=== PATIENT | female | born 1960 | race Caucasian/White ===

== ENCOUNTER 2016-11-29 02:09 | Inpatient (IN) | payer MEDICARE ==
[~2016-11-29] VITALS: Ht 162.6 cm; Wt 62.2 kg
[2016-11-29 02:28] VITALS: BP 176/87; PULSE 64; RESP 18; TEMP 98.2; O2SAT 97
[2016-11-29] MEDS ORDERED: XANA1TAB2 PO (02:39)
[2016-11-29] MEDS ORDERED: HYDR2TAB PO (02:39)
[2016-11-29] MEDS ORDERED: OXYC1CAP PO (02:39)
[2016-11-29] MEDS ORDERED: SYNT25TA PO (02:39)
--- NOTE | 2016-11-29 02:39 | PD ---
HPI Chief Complaint: Calle act Time Seen by Provider: 02:17 Travel History International Travel<30 days: No Contact w/Intl Traveler<30days: No Traveled to known affect area: No History of Present Illness HPI 56-year-old white female presents to emergency department as a transfer from [facility] because she is outside there scope of care. The patient was placed under Calle act and sent to [facility]. The patient had told a friend of hers that she was feeling depressed and contemplating overdosing on her medications. Her friend contacted the police who Calle acted the patient. The patient has been under increasing stress and feeling increasingly depressed. Her mother last month. She was required to leave her mothers home according to the Will. The patient now is living with her daughter. She does not feel welcome in the home. She has no friends in the area. She does smoke cigarettes. She denies any alcohol or drugs. She does take chronic pain medications for chronic back pain. She also takes thyroid replacement. Patient denies any toxic ingestion. No homicidal ideation. No current medical complaints otherwise. PFSH Past Medical History Narrative Medical Chronic back pain, hypothyroidism, anxiety Tetanus Vaccination: < 5 Years Past Surgical History Narrative Surgical Back surgery 3 Social History Alcohol Use: Yes Tobacco Use: No Substance Use: No Allergies-Medications (Allergen,Severity, Reaction): Coded Allergies: lisinopril (Verified Allergy, Severe, 11/29/16) metronidazole (Verified Allergy, Severe, 11/29/16) Reported Meds & Prescriptions Reported Meds & Active Scripts Active Reported Hydromorphone (Hydromorphone HCl) 2 Mg Tab 2 Mg PO DIRECTED PRN Oxycodone (Oxycodone HCl) 5 Mg Cap 5 Mg PO DIRECTED PRN Synthroid (Levothyroxine Sodium) 25 Mcg Tab 25 Mcg PO DAILY Xanax (Alprazolam) 1 Mg Tab 1 Mg PO DIRECTED Review of Systems Except as stated in HPI: all other systems reviewed are Neg Musculoskeletal: Positive: Arthralgias, Pain (chronic back pain) Psychiatric: Positive: Depression, Suicidal Ideations, Mood Disorder, No: Anxiety, Disorder of Thought, Substance Abuse, Homicidal Ideation Physical Exam Narrative GENERAL: Well-nourished, well-developed patient. SKIN: Warm and dry. HEAD: Normocephalic and atraumatic. EYES: No scleral icterus. No injection or drainage. ENT: No nasal drainage noted. Mucous membranes pink. Airway patent. NECK: Supple, trachea midline. Moves head freely without obvious discomfort. CARDIOVASCULAR: Regular rate and rhythm without murmurs, gallops, or rubs. RESPIRATORY: Breath sounds equal bilaterally. No accessory muscle use. GASTROINTESTINAL: Abdomen soft, non-tender, nondistended. EXTREMITIES: No cyanosis or edema. BACK: Nontender without obvious deformity. No CVA tenderness. NEURO: Patient is alert and oriented. no sensorimotor deficits. Nonfocal. Normal speech. PSYCH: No delusions. No auditory or visual hallucinations. Data Data Last Documented VS Vital Signs Date Time Temp Pulse Resp B/P (MAP) Pulse Ox O2 Delivery O2 Flow Rate FiO2 11/29/16 02:28 98.2 64 18 176/87 (116) 97 Orders Orders Complete Blood Count With Diff (11/29/16 02:29) Comprehensive Metabolic Panel (11/29/16 02:29) Thyroid Stimulating Hormone (11/29/16 02:29) Urinalysis - C+S If Indicated (11/29/16 02:29) Psych Screen (11/29/16 02:29) Drug Screen, Random Urine (11/29/16 02:29) Alcohol (Ethanol) (11/29/16 02:29) Salicylates (Aspirin) (11/29/16 02:29) Tylenol (Acetaminophen) (11/29/16 02:29) Urine Culture (11/29/16 03:10) Nitrofurantoin Monohyd Macrocr (Macrobid (11/29/16 04:00) Labs Laboratory Tests Test 11/29/16 03:10 White Blood Count 7.7 TH/MM3 Red Blood Count 4.33 MIL/MM3 Hemoglobin 12.1 GM/DL Hematocrit 37.5 % Mean Corpuscular Volume 86.6 FL Mean Corpuscular Hemoglobin 27.8 PG Mean Corpuscular Hemoglobin Concent 32.1 % Red Cell Distribution Width 15.8 % Platelet Count 231 TH/MM3 Mean Platelet Volume 9.1 FL Neutrophils (%) (Auto) 59.4 % Lymphocytes (%) (Auto) 33.1 % Monocytes (%) (Auto) 5.5 % Eosinophils (%) (Auto) 0.8 % Basophils (%) (Auto) 1.2 % Neutrophils # (Auto) 4.6 TH/MM3 Lymphocytes # (Auto) 2.6 TH/MM3 Monocytes # (Auto) 0.4 TH/MM3 Eosinophils # (Auto) 0.1 TH/MM3 Basophils # (Auto) 0.1 TH/MM3 CBC Comment DIFF FINAL Differential Comment Urine Color YELLOW Urine Turbidity HAZY Urine pH 6.0 Urine Specific [place] 1.032 Urine Protein TRACE mg/dL Urine Glucose (UA) NEG mg/dL Urine Ketones NEG mg/dL Urine Occult Blood NEG Urine Nitrite NEG Urine Bilirubin NEG Urine Urobilinogen 2.0 MG/DL Urine Leukocyte Esterase LARGE Urine RBC 2 /hpf Urine WBC 37 /hpf Urine Squamous Epithelial Cells 9 /hpf Urine Renal Epithelial Cells <1 /hpf Urine Bacteria RARE /hpf Urine Mucus MANY /lpf Microscopic Urinalysis Comment CULTURE INDICATED Blood Urea Nitrogen 20 MG/DL Creatinine 0.84 MG/DL Random Glucose 84 MG/DL Total Protein 7.2 GM/DL Albumin 3.6 GM/DL Calcium Level 8.9 MG/DL Alkaline Phosphatase 99 U/L Aspartate Amino Transf (AST/SGOT) 18 U/L Alanine Aminotransferase (ALT/SGPT) 19 U/L Total Bilirubin 0.2 MG/DL Sodium Level 143 MEQ/L Potassium Level 3.6 MEQ/L Chloride Level 108 MEQ/L Carbon Dioxide Level 26.4 MEQ/L Anion Gap 9 MEQ/L Estimat Glomerular Filtration Rate 70 ML/MIN Thyroid Stimulating Hormone 3rd Gen 14.100 uIU/ML Salicylates Level 6.7 MG/DL Urine Opiates Screen NEG Acetaminophen Level 4.3 MCG/ML Urine Barbiturates Screen NEG Urine Amphetamines Screen NEG Urine Benzodiazepines Screen POS Urine Cocaine Screen NEG Urine Cannabinoids Screen NEG Ethyl Alcohol Level LESS THAN 3 MG/DL MDM Medical Decision Making Medical Screen Exam Complete: Yes Emergency Medical Condition: Yes Medical Record Reviewed: Yes Interpretation(s) Laboratory Tests Test 11/29/16 03:10 White Blood Count 7.7 TH/MM3 Red Blood Count 4.33 MIL/MM3 Hemoglobin 12.1 GM/DL Hematocrit 37.5 % Mean Corpuscular Volume 86.6 FL Mean Corpuscular Hemoglobin 27.8 PG Mean Corpuscular Hemoglobin Concent 32.1 % Red Cell Distribution Width 15.8 % Platelet Count 231 TH/MM3 Mean Platelet Volume 9.1 FL Neutrophils (%) (Auto) 59.4 % Lymphocytes (%) (Auto) 33.1 % Monocytes (%) (Auto) 5.5 % Eosinophils (%) (Auto) 0.8 % Basophils (%) (Auto) 1.2 % Neutrophils # (Auto) 4.6 TH/MM3 Lymphocytes # (Auto) 2.6 TH/MM3 Monocytes # (Auto) 0.4 TH/MM3 Eosinophils # (Auto) 0.1 TH/MM3 Basophils # (Auto) 0.1 TH/MM3 CBC Comment DIFF FINAL Differential Comment Urine Color YELLOW Urine Turbidity HAZY Urine pH 6.0 Urine Specific [place] 1.032 Urine Protein TRACE mg/dL Urine Glucose (UA) NEG mg/dL Urine Ketones NEG mg/dL Urine Occult Blood NEG Urine Nitrite NEG Urine Bilirubin NEG Urine Urobilinogen 2.0 MG/DL Urine Leukocyte Esterase LARGE Urine RBC 2 /hpf Urine WBC 37 /hpf Urine Squamous Epithelial Cells 9 /hpf Urine Renal Epithelial Cells <1 /hpf Urine Bacteria RARE /hpf Urine Mucus MANY /lpf Microscopic Urinalysis Comment CULTURE INDICATED Blood Urea Nitrogen 20 MG/DL Creatinine 0.84 MG/DL Random Glucose 84 MG/DL Total Protein 7.2 GM/DL Albumin 3.6 GM/DL Calcium Level 8.9 MG/DL Alkaline Phosphatase 99 U/L Aspartate Amino Transf (AST/SGOT) 18 U/L Alanine Aminotransferase (ALT/SGPT) 19 U/L Total Bilirubin 0.2 MG/DL Sodium Level 143 MEQ/L Potassium Level 3.6 MEQ/L Chloride Level 108 MEQ/L Carbon Dioxide Level 26.4 MEQ/L Anion Gap 9 MEQ/L Estimat Glomerular Filtration Rate 70 ML/MIN Thyroid Stimulating Hormone 3rd Gen 14.100 uIU/ML Salicylates Level 6.7 MG/DL Urine Opiates Screen NEG Acetaminophen Level 4.3 MCG/ML Urine Barbiturates Screen NEG Urine Amphetamines Screen NEG Urine Benzodiazepines Screen POS Urine Cocaine Screen NEG Urine Cannabinoids Screen NEG Ethyl Alcohol Level LESS THAN 3 MG/DL Differential Diagnosis MDM: High Differential diagnoses: Schizophrenia, schizoaffective disorder, bipolar, anxiety, depression, adjustment reaction, mood disorder NOS, ODD, depressive disorder NOS, dementia, dementia with agitation, psychosis NOS, substance induced mood disorder,infection,electrolyte abnormality, malingering. Narrative Course Mental health screening discussed with the patient. Psychiatric screen ordered. The patient has leukocytes and bacteria in her urine. Negative nitrates. She' ll be empirically treated for UTI. Patient given Macrobid, patient's TSH is elevated consistent with hypothyroidism Patient been medically cleared This is medical clearance for psychiatric admission, adjustment reaction with depressed mood, chronic back pain, UTI, hypothyroidism Diagnosis Primary Impression: Medical clearance for psychiatric admission Additional Impressions: Reaction, adjustment, with depressed mood, prolonged Chronic back pain Qualified Codes: M54.5 - Low back pain; G89.29 - Other chronic pain UTI (urinary tract infection) Qualified Codes: N30.00 - Acute cystitis without hematuria Hypothyroidism Qualified Codes: E03.9 - Hypothyroidism, unspecified Condition: Stable Chema Henning Nov 29, 2016 02:39
[2016-11-29 03:37] LABS: BACTERIA, URINE RARE /hpf; BLOOD, URINE NEG (NEG); GLUCOSE,URINE NEG (NEG); KETONE, URINE NEG (NEG); MUCUS URINE MANY /lpf (OCC); NITRITE,URINE NEG (NEG); RENAL EPITHELIAL CELLS <1 /hpf; SQUAMOUS EPITHELIAL CELL URINE 9 /hpf (0-5); URINE COLOR YELLOW (YELLW/STRAW)
[2016-11-29 03:38] LABS: COMMENT (UR) CULTURE INDICATED; CULTURE IF INDICATED CULTURE INDICATED
[2016-11-29 03:44] LABS: AUTOMATED NEUTROPHIL # 4.6 TH/MM3 (1.8-7.7); BASOPHIL # 0.1 TH/MM3 (0-0.2); BASOPHIL % 1.2 % (0.0-2.0); EOSINOPHIL # 0.1 TH/MM3 (0-0.4); EOSINOPHIL % 0.8 % (0.0-4.0); HEMATOCRIT 37.5 % (35.0-46.0); HEMO FLAGS DIFF FINAL; LYMPH % 33.1 % (9.0-44.0); LYMPHOCYTE # 2.6 TH/MM3 (1.0-4.8); MEAN CELL VOLUME 86.6 FL (80.0-100.0); MEAN CORPUSCULAR HEMOGLOBIN 27.8 PG (27.0-34.0); MEAN CORPUSCULAR HGB CONC 32.1 % (32.0-36.0); MONO % 5.5 % (0.0-8.0); NEUT % 59.4 % (16.0-70.0); PLATELET COUNT 231 TH/MM3 (150-450); RED BLOOD COUNT 4.33 MIL/MM3 (4.00-5.30); RED CELL DISTRIBUTION WIDTH 15.8 % (11.6-17.2); WHITE BLOOD COUNT 7.7 TH/MM3 (4.0-11.0)
[2016-11-29 03:55] LABS: ACETAMINOPHEN 4.3 MCG/ML (10.0-30.0); ALKALINE PHOSPHATASE 99 U/L (45-117); TOTAL BILIRUBIN ADULT 0.2 MG/DL (0.2-1.0)
[2016-11-29 03:57] LABS: ALCOHOL LESS THAN 3 MG/DL (0-5); ALT (GPT) 19 U/L (10-53); ANION GAP 9 MEQ/L (5-15); AST (GOT) 18 U/L (15-37); BICARBONATE 26.4 MEQ/L (21.0-32.0); BLOOD UREA NITROGEN 20 MG/DL (7-18); CHLORIDE 108 MEQ/L (98-107); GLOMERULAR FILTRATION RATE 70 ML/MIN (>89); POTASSIUM 3.6 MEQ/L (3.5-5.1); SODIUM (NA) 143 MEQ/L (136-145)
[2016-11-29] MEDS ORDERED: NITROFURANTOIN MONOHYD MACROCR 100 MG CAP PO ONE (04:00)
[2016-11-29] MEDS ORDERED: ALUMINUM/MAGNESIUM/SIMETH 30 ML CUP PO PRN (07:15)
[2016-11-29] MEDS ORDERED: MAGNESIUM HYDROXIDE SUSP 30 ML CUP PO PRN (07:15)
[2016-11-29] MEDS ORDERED: LORazepam 1 MG TAB PO PRN (07:15)
[2016-11-29] MEDS ORDERED: LORazepam 2 MG/ML VIAL IM PRN (07:15)
[2016-11-29] MEDS ORDERED: traZODone HCL 50 MG TAB PO PRN (07:15)
[2016-11-29] MEDS: NICOTINE 21 MG/24 HR PATCH T-DERMAL SCH (09:00)
[2016-11-29] MEDS: LEVOTHYROXINE SODIUM 25 MCG TAB PO SCH (09:14)
[2016-11-29 09:50] VITALS: BP 167/95; PULSE 66; RESP 18; TEMP 97.4; O2SAT 98
[2016-11-29 17:02] VITALS: BP 163/105; PULSE 62; RESP 18; TEMP 97.9; O2SAT 95
--- NOTE | 2016-11-29 18:43 | PD.CONS ---
HPI Service [facility] Hospitalists Consult Requested By Reason for Consult Medical management Primary Care Physician Sofía Sharma MD Diagnoses: History of Present Illness Patient was transferred to [facility] apparently because her pain was not controlled at [facility] (where she was being managed for mental illness) . History obtained from nurse and patient. 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 Patient reports she's undergone spinal surgeries and has residual left lower leg numbness and chronic back pain that is rather severe. She states that she has been tried on multiple medications including gabapentin, Lyrica, and tramadol with no satisfactory results. She states that she takes oxycodone 6 times a day and Dilaudid in between for breakthrough 2-4 times a day. She states that she was also recently being managed for her hypothyroidism by her primary care provider, she cannot remember the dosage and there is no dosage listed in our charts either. Patient denies having any change in her urinary habits including increased frequency dysuria or hematuria. Denies any fevers or chills, nausea vomiting. Patient says that she feels that she is wasting of bed at this facility and is asking me to "sign her out." Review of Systems Except as stated in HPI: all other systems reviewed are Neg Past Family Social History Allergies: Coded Allergies: lisinopril (Verified Allergy, Severe, 11/29/16) metronidazole (Verified Allergy, Severe, 11/29/16) Past Medical History Hypothyroidism, chronic low back pain, anxiety Past Surgical History Spinal surgery 3 Family History Hypertension Social History Alcohol use +, no tobacco or illicit drug use Physical Exam Vital Signs Vital Signs Date Time Temp Pulse Resp B/P (MAP) Pulse Ox O2 Delivery O2 Flow Rate FiO2 11/29/16 17:02 97.9 62 18 163/105 (124) 95 11/29/16 09:50 97.4 66 18 167/95 (119) 98 11/29/16 02:28 98.2 64 18 176/87 (116) 97 Physical Exam VS: Hypertensive, afebrile GENERAL: ambulating in the hallways, does not appear to be in any acute distress SKIN: Warm and dry. EYES: No scleral icterus. No injection or drainage. ENT: Mucous membranes pink and moist. CARDIOVASCULAR: Regular rate and rhythm. no murmurs RESPIRATORY: No accessory muscle use. Clear to auscultation. Breath sounds equal bilaterally. GASTROINTESTINAL: Abdomen soft, non-tender, nondistended. MUSCULOSKELETAL: Extremities without clubbing, cyanosis, or edema. No obvious deformities. grossly intact ROM with 5/5 strength in upper and lower extremities proximally. Moderate tenderness to palpation noted over lumbar spine with natural flinching. NEUROLOGICAL: Awake and alert. No obvious cranial nerve deficits. No facial droop nor slurred speech noted. No sensation to light touch on anterior conroy of left lower leg. Intact sensation otherwise on right leg and bilateral upper extremities. PSYCHIATRIC: Appropriate mood and affect; insight and judgment normal. Laboratory Laboratory Tests Test 11/29/16 03:10 White Blood Count 7.7 Red Blood Count 4.33 Hemoglobin 12.1 Hematocrit 37.5 Mean Corpuscular Volume 86.6 Mean Corpuscular Hemoglobin 27.8 Mean Corpuscular Hemoglobin Concent 32.1 Red Cell Distribution Width 15.8 Platelet Count 231 Mean Platelet Volume 9.1 Neutrophils (%) (Auto) 59.4 Lymphocytes (%) (Auto) 33.1 Monocytes (%) (Auto) 5.5 Eosinophils (%) (Auto) 0.8 Basophils (%) (Auto) 1.2 Neutrophils # (Auto) 4.6 Lymphocytes # (Auto) 2.6 Monocytes # (Auto) 0.4 Eosinophils # (Auto) 0.1 Basophils # (Auto) 0.1 CBC Comment DIFF FINAL Differential Comment Urine Color YELLOW Urine Turbidity HAZY Urine pH 6.0 Urine Specific [place] 1.032 Urine Protein TRACE Urine Glucose (UA) NEG Urine Ketones NEG Urine Occult Blood NEG Urine Nitrite NEG Urine Bilirubin NEG Urine Urobilinogen 2.0 Urine Leukocyte Esterase LARGE Urine RBC 2 Urine WBC 37 Urine Squamous Epithelial Cells 9 Urine Renal Epithelial Cells <1 Urine Bacteria RARE Urine Mucus MANY Microscopic Urinalysis Comment CULTURE INDICATED Blood Urea Nitrogen 20 Creatinine 0.84 Random Glucose 84 Total Protein 7.2 Albumin 3.6 Calcium Level 8.9 Alkaline Phosphatase 99 Aspartate Amino Transf (AST/SGOT) 18 Alanine Aminotransferase (ALT/SGPT) 19 Total Bilirubin 0.2 Sodium Level 143 Potassium Level 3.6 Chloride Level 108 Carbon Dioxide Level 26.4 Anion Gap 9 Estimat Glomerular Filtration Rate 70 Thyroid Stimulating Hormone 3rd Gen 14.100 Salicylates Level 6.7 Urine Opiates Screen NEG Acetaminophen Level 4.3 Urine Barbiturates Screen NEG Urine Amphetamines Screen NEG Urine Benzodiazepines Screen POS Urine Cocaine Screen NEG Urine Cannabinoids Screen NEG Ethyl Alcohol Level LESS THAN 3 Date/Time Source Procedure Growth Status 11/29/16 03:10 Urine Clean Catch Urine Culture Pending Received Result Diagram: 11/29/1630911/29/16309 Assessment and Plan Assessment and Plan 56-year-old white female. Elevated blood pressures - likely secondary to back pain, control pain, will order hydralazine prn elevated BP. 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 The most recent prescribed doses need to be verified by either nursing or pharmacy based on outside medical records which need to be obtained. hypothyroidism - TSH elevated. continue Synthroid HEATHER - possibly chronic, but will do a trial of NS and repeat BMP in AM. anxiety - managed per primary. There are no clinical signs of urinary tract infection, we'll not continue the Macrobid started in the ER, can still follow-up urine culture since it has already been started. Kapil Norris MD Nov 29, 2016 18:43
[2016-11-29] MEDS ORDERED: hydrALAZINE HCL 25 MG TAB PO PRN (19:00)
[2016-11-29] MEDS ORDERED: SODIUM CHLOR 0.9% 1000 ML INJ 1,000 ML IV ONE (19:00)
[2016-11-29] MEDS: REMOVE OLD NICOTINE PATCH T-DERMAL SCH (20:50)
[2016-11-30] MEDS: LEVOTHYROXINE SODIUM 25 MCG TAB PO SCH (05:12)
[2016-11-30 05:55] VITALS: BP 140/84; PULSE 65; RESP 18; TEMP 96.3; O2SAT 97
[2016-11-30 06:08] VITALS: BP 140/84; PULSE 65; RESP 18; TEMP 96.3; O2SAT 97
[2016-11-30] MEDS: NICOTINE 21 MG/24 HR PATCH T-DERMAL SCH (08:12)
[2016-11-30] MEDS: ACETAMINOPHEN 325 MG TAB PO PRN ×2 (10:07→20:09)
[2016-11-30] MEDS ORDERED: OXYC-395 PO (10:32)
[2016-11-30] MEDS ORDERED: HYDR4TAB PO (10:32)
[2016-11-30 11:05] LABS: ANION GAP 10 MEQ/L (5-15); BICARBONATE 27.2 MEQ/L (21.0-32.0); BLOOD UREA NITROGEN 15 MG/DL (7-18); CHLORIDE 104 MEQ/L (98-107); GLOMERULAR FILTRATION RATE 76 ML/MIN (>89); POTASSIUM 3.3 MEQ/L (3.5-5.1); SODIUM (NA) 141 MEQ/L (136-145)
[2016-11-30 11:08] LABS: HDL CHOLESTEROL 30.7 MG/DL (40.0-60.0); LDL CHOLESTEROL 64 MG/DL (0-99)
[2016-11-30] MEDS: HYDROmorphone HCL 2 MG TAB PO PRN ×2 (14:19→21:01)
[2016-11-30] MEDS: PARoxetine HCL 20 MG TAB PO SCH (14:45)
[2016-11-30 16:41] LABS: HEMOGLOBIN A1a 1.1 %; HEMOGLOBIN A1b 1.8 %; HEMOGLOBIN Ao 84.6 %; HEMOGLOBIN LA1C 2.2 %; HEMOGLOBIN P3 5.5 %
--- NOTE | 2016-11-30 17:16 | HHI.HP ---
Provisional Diagnosis Admission Date Nov 29, 2016 at 06:41 Lo[place] I. Adjustment disorder with depressed mood; bereavement Certification of Person's Competence To Provide Express and Informed Consent I have personally examined Nancy Lopez , a person being served at [facility] on, Nov 30, 2016 17:16. Express and informed consent means consent voluntarily given in writing, by a competent person, after sufficient explanation and disclosure of the subject matter involved to enable the person to make a knowing and willful decision without any element of force, fraud, deceit, duress, or other form of constraint or coercion. This person is 18 years of age or older, is not now known to be incompetent to consent to treatment with a guardian advocate, and does not have a health care surrogate or proxy currently making medical treatment decisions. I have found this person to be one of the following: [x] Competent to provide express and informed consent, as defined above, for voluntary admission to this facility and is competent to provide express and informed consent for treatment. He/she has the consistent capacity to make well reasoned, willful, and knowing decisions concerning his or her medical or mental health treatment. The person fully and consistently understands the purpose of the admission for examination/placement and is fully capable of personally exercising all rights [place] Incompetent to provide express and informed consent to voluntary admission, and this is incompetent to provide express and informed consent to treatment. The person must be transferred to involuntary status and a petition for a guardian advocate filed with the Circuit Court. [] Refusing to provide express and informed consent to voluntary admission but is competent to provide express and informed consent for treatment. The person must be discharged or transferred to involuntary status. Form shall be completed within 24 hours of a person's arrival at the receiving facility and filed in the clinical record of each person: 1. Admitted on a voluntary basis 2. Permitted to provide express and informed consent to his/her own treatment 3. Allowed to transfer from involuntary to voluntary status 4. Prior to permitting a person to consent to his or her own treatment after having been previously found incompetent to consent to treatment. History of Present Illness Capacity: Has Capacity Psych Chief Complaint: SI via overdose HPI Patient is a 56 y/o woman, with two adult children domiciled with daughter recently, retired, with pas psychiatric history of depression, no prior psychiatric admissions, no prior suicide attempts, no history of substance use who was sent to the ED from [facility] under Calle act after having stated feeling depressed and contemplating on overdosing on her medications which she was admitted to the inpatient psychiatry unit for further evaluation and treatment. Patient in the ED reported that her mother had last month and due to the Will had to vacate the home for 90 days. Patient seen on the psychiatry unit, found sitting on hospital bed stating feeling ok. Patient states that she is here in the hospital because she is grieving over the of her mother in September 2016. She states having made a statement to her friend I wonder what it would be like to be with my mother right now which her friend became concerned and called 911. She denies any suicidal ideations at this time but also did not report having contemplated overdose as stated in the Calle Act. She states that that she has been contemplating on resuming treatment and engage in therapy. She reports sleep has been getting better, decreased appetite with some weight loss but reports having re-gained some of her weight. 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 She states still feeling sad due to the loss. Currently she reports feeing ok , denies SI, HI, AVH or delusions at this time. Past psychiatric history: previous psychiatric diagnosis of post depression, no previous psychiatric admissions, no previous suicide attempts or self injurious behavior. Previous outpatient psychiatrist after the of her child which she received treatment for 12-18 months for depression with fluoxetine. Current medications: None. Denies history of sexual abuse and physical abuse. Substance use history: Tobacco (+), denies use of alcohol or other illegal substances, no previous rehab or detox programs. Past medical history: hypothyroidism, chronic back pain Allergies: lisinopril Social history: , two adult children, currently living with daughter, highest education some college. Legal history: denies Review of Systems Except as stated in HPI: all other systems reviewed are Neg Past Psych History Psychological trauma history denies history of abuse Violence risk - others (6 mos) low Violence risk - self (6 mos) moderate Substance Abuse History Drugs/Alcohol past 12 months denies Past Family Social History Coded Allergies: lisinopril (Verified Allergy, Severe, 11/29/16) metronidazole (Verified Allergy, Severe, 11/29/16) Reported Medications Hydromorphone (Hydromorphone) 4 Mg Tab, 4 MG PO BID for Pain, #1 TAB 0 Refills 11/30/16 Oxycodone (Oxycodone) 10 Mg Tab, 10 MG PO Q6H for Pain Management, #1 TAB 0 Refills 11/30/16 Hydromorphone (Hydromorphone) 2 Mg Tab, 2 MG PO DIRECTED Y for PAIN, TAB 0 Refills 11/29/16 Oxycodone (Oxycodone) 5 Mg Cap, 5 MG PO DIRECTED Y for PAIN, CAP 0 Refills 11/29/16 Levothyroxine (Synthroid) 25 Mcg Tab, 25 MCG PO DAILY for Thyroid, #30 TAB 0 Refills 11/29/16 Alprazolam (Xanax) 1 Mg Tab, 1 MG PO DIRECTED, TAB 0 Refills 11/29/16 Current Medications Medications (Trade) Dose Ordered Sig/Diane Route Start Time Stop Time Status Last Admin (Ativan) 1 mg Q6H PRN PO 11/29/16 07:15 (Ativan Inj) 1 mg Q6H PRN IM 11/29/16 07:15 (Tylenol) 650 mg Q4H PRN PO 11/29/16 07:15 11/30/16 10:07 (Milk Of Magnesia Liq) 30 ml DAILY PRN PO 11/29/16 07:15 (Mag-Al Plus Susp Liq) 30 ml Q6H PRN PO 11/29/16 07:15 (Habitrol 21 Mg Patch.24 Hr) 1 patch DAILY T-DERMAL 11/29/16 09:00 Miscellaneous Information 1 HS T-DERMAL 11/29/16 21:00 (Synthroid) 25 mcg DAILY@0600 PO 11/29/16 09:00 11/30/16 05:12 (Dilaudid) 2 mg TID PRN PO 11/29/16 19:00 11/30/16 14:19 (Roxicodone) 5 mg Q8HR PRN PO 11/29/16 19:00 11/30/16 08:10 (Apresoline) 25 mg Q6HR PRN PO 11/29/16 19:00 (Desyrel) 50 mg HS PO 11/30/16 21:00 (Paxil) 20 mg DAILY PO 11/30/16 14:15 11/30/16 14:45 Social History , two adult children, currently living with daughter, highest education some college. Patient's Strengths (min. 2) verbal and communicative Physical Exam Patient found to be in no acute distress, no noted gross motor abnormalities, no tremors of EPS, no noted psychomotor agitation of retardation. Vital Signs Vital Signs Date Time Temp Pulse Resp B/P (MAP) Pulse Ox O2 Delivery O2 Flow Rate FiO2 11/30/16 06:08 96.3 65 18 140/84 (102) 97 Lab Results labs reviewed Test 11/30/16 08:58 Blood Urea Nitrogen 15 MG/DL Creatinine 0.78 MG/DL Random Glucose 104 MG/DL Calcium Level 9.4 MG/DL Sodium Level 141 MEQ/L Potassium Level 3.3 MEQ/L Chloride Level 104 MEQ/L Carbon Dioxide Level 27.2 MEQ/L Anion Gap 10 MEQ/L Estimat Glomerular Filtration Rate 76 ML/MIN Triglycerides Level 298 MG/DL Cholesterol Level 154 MG/DL LDL Cholesterol 64 MG/DL HDL Cholesterol 30.7 MG/DL Cholesterol/HDL Ratio 5.01 RATIO Date/Time Source Procedure Growth Status 11/29/16 03:10 Urine Clean Catch Urine Culture - Preliminary IMMATURE GROWTH - REINCUBATE Resulted Mental Status Examination Appearance: Appropriate Consciousness: Alert Orientation: x4 Motor Activity: Normal gait Speech: Unremarkable Language: Adequate Fund of Knowledge: Adequate Attention and Concentration: Adequate Memory: Unremarkable Mood: Anxious Affect: Anxious Thought Process & Associations: Intact, Logical Thought Content: Appropriate Hallucination Type: None Delusion Type: None Suicidal Ideation: Yes Suicidal Plan: No Suicidal Intention: No Homicidal Ideation: No Homicidal Plan: No Homicidal Intention: No Insight: Poor Judgment: Poor Assessment & Plan Problem List: (1) Adjustment disorder with depressed mood ICD Codes: F43.21 - Adjustment disorder with depressed mood (2) Bereavement ICD Codes: Z63.4 - Disappearance and of family member Assessment & Plan Estimated LOS:5-7 days. 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 Patient at this time will agree to sign voluntary and start treatment and kept for longitudinal observation of mood and behavior. Will start fluoxetine 20mg PO daily. Collateral information pending from daughter (Stefan Lopez [phone]). Discharge planning in progress. Adonis Rueda MD Nov 30, 2016 17:16
[2016-11-30 18:27] VITALS: BP 153/88; PULSE 66; RESP 16; TEMP 97.7; O2SAT 98
[2016-11-30] MEDS: traZODone HCL 50 MG TAB PO SCH (20:40)
[2016-11-30] MEDS: REMOVE OLD NICOTINE PATCH T-DERMAL SCH (21:00)
--- NOTE | 2016-12-01 02:05 | HHI.PR ---
Subjective Remarks late entry - patient seen pn 11/30/16 at 7:10 pm Patient states has low back pain but is slowly improving denies cp/sob Objective Vitals Vital Signs Date Time Temp Pulse Resp B/P (MAP) Pulse Ox O2 Delivery O2 Flow Rate FiO2 11/30/16 18:27 97.7 66 16 153/88 (109) 98 11/30/16 06:08 96.3 65 18 140/84 (102) 97 11/30/16 05:55 96.3 65 18 140/84 (102) 97 Result Diagram: 11/29/16 0310 11/30/16 0858 Objective Remarks GENERAL: ambulating in the hallways, does not appear to be in any acute distress SKIN: Warm and dry. EYES: No scleral icterus. No injection or drainage. ENT: Mucous membranes pink and moist. CARDIOVASCULAR: Regular rate and rhythm. no murmurs RESPIRATORY: No accessory muscle use. Clear to auscultation. Breath sounds equal bilaterally. GASTROINTESTINAL: Abdomen soft, non-tender, nondistended. MUSCULOSKELETAL: Extremities without clubbing, cyanosis, or edema. No obvious deformities. grossly intact ROM with 5/5 strength in upper and lower extremities proximally. Moderate tenderness to palpation noted over lumbar spine with natural flinching. NEUROLOGICAL: Awake and alert. No obvious cranial nerve deficits. No facial droop nor slurred speech noted. No sensation to light touch on anterior conroy of left lower leg. Intact sensation otherwise on right leg and bilateral upper extremities. PSYCHIATRIC: Appropriate mood and affect; insight and judgment normal. A/P Assessment and Plan HTN: likely secondary to back pain, control pain, will order hydralazine prn elevated BP. 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 The most recent prescribed doses need to be verified by either nursing or pharmacy based on outside medical records which need to be obtained. 11/30 Continue management as above. hypothyroidism - TSH elevated. continue Synthroid 11/30 Check free t4 in am HEATHER - possibly chronic, but will do a trial of NS and repeat BMP in AM. 11/30 encourage oral intake. Patient has stable creatinine and urine output. anxiety - managed per primary. Jhon Abel MD Dec 01, 2016 02:05
[2016-12-01] MEDS: LEVOTHYROXINE SODIUM 25 MCG TAB PO SCH (05:31)
[2016-12-01 06:03] VITALS: BP 134/75; PULSE 56; RESP 16; TEMP 97.8
[2016-12-01] MEDS: HYDROmorphone HCL 2 MG TAB PO PRN ×2 (08:00→17:13)
[2016-12-01] MEDS: PARoxetine HCL 20 MG TAB PO SCH (09:25)
[2016-12-01] MEDS: NICOTINE 21 MG/24 HR PATCH T-DERMAL SCH (09:25)
--- NOTE | 2016-12-01 15:35 | HHI.PYPN ---
Subjective Remarks Patient seen for follow-up, chart reviewed. As per nursing report patient stated that she never wanted herself. Patient was found participating in groups today, cooperative interview. Patient states that she had been feeling well she slept well eating and drinking okay. She stated that she attended psychotherapy group which was upset afterwards because it reminded her of her mother as other patients were speaking about their mothers. She is aware that she will continue to have moments where she will remember her mother and half to continue grieving for her loss. Denies any suicidal ideations. Patient states that she has been visited by her daughter and as well as spoken to her twice a day over the phone. Patient reports tolerating medication well without adverse drug reactions. Chief Complaint: SI via overdose Review of Systems Except as stated in HPI: all other systems reviewed are Neg Mental Status Examination Appearance: Appropriate Consciousness: Alert Orientation: x4 Motor Activity: Normal gait Speech: Unremarkable Language: Adequate Fund of Knowledge: Adequate Attention and Concentration: Adequate Memory: Unremarkable Mood: Sad Affect: Sad Thought Process & Associations: Intact, Logical Thought Content: Appropriate Hallucination Type: None Delusion Type: None Suicidal Ideation: Yes Suicidal Plan: No Suicidal Intention: No Homicidal Ideation: No Homicidal Plan: No Homicidal Intention: No Insight: Poor Judgment: Poor Mental Status Exam Remarks Results Labs Date/Time Source Procedure Growth Status 11/29/16 03:10 Urine Clean Catch Urine Culture - Final 50-100,000 CFU/ML MIXED GRAM POSITIVE... Complete Vitals/IOs Vital Signs Date Time Temp Pulse Resp B/P (MAP) Pulse Ox O2 Delivery O2 Flow Rate FiO2 12/01/16 06:03 97.8 56 16 134/75 (94) 11/30/16 18:27 98 Assessment & Plan Problem List: (1) Adjustment disorder with depressed mood ICD Codes: F43.21 - Adjustment disorder with depressed mood (2) Bereavement ICD Codes: Z63.4 - Disappearance and of family member Assessment & Plan Patient at this time continues to be having depressed mood, but not endorsing suicidal ideations. Patient continues to find ways to cope with her recent loss. Continue current treatment. Discharge planning in progress. Justification for Cont. Inpt. At risk for further decompensation if at lower level of care Discharge Planning Patient likely for discharge within to 3 days if patient continues to have stable mood and no longer endorsing suicidality Adonis Rueda MD Dec 01, 2016 15:35
[2016-12-01 18:00] VITALS: BP 129/84; PULSE 63; RESP 16; TEMP 97.3; O2SAT 97
[2016-12-01] MEDS ORDERED: POTASSIUM CHLORIDE 10 MEQ CONTROLLED RELEASE TAB PO ONE (18:00)
--- NOTE | 2016-12-01 18:26 | HHI.PR ---
Subjective Remarks Follow-up visit chronic back pain/ pain management, elevated BP, hypothyroidism , hypokalemia. Patient is seen and examined today. Reports she is doing well. States that her pain medication is now working and she is getting back to normal. Denies SOB/ dyspnea. Denies chest pain, palpitations, headaches, dizziness. Denies fevers, chills, n/v/d. Denies dysuria. Objective Vitals Vital Signs Date Time Temp Pulse Resp B/P (MAP) Pulse Ox O2 Delivery O2 Flow Rate FiO2 12/01/16 06:03 97.8 56 16 134/75 (94) 11/30/16 18:27 97.7 66 16 153/88 (109) 98 Result Diagram: 11/29/16 0310 11/30/16 0858 Objective Remarks GENERAL: This is a well-nourished, well-developed patient, in no apparent distress. SKIN: Warm and dry. HEENT: Normocephalic. Pupils equal round and reactive. Nose without bleeding. Airway patent. NECK: Trachea midline. No JVD. Supple. CARDIOVASCULAR: Regular rate and rhythm without murmurs, gallops, or rubs. RESPIRATORY: Clear to auscultation. Breath sounds equal bilaterally. No wheezes , rales, or rhonchi. GASTROINTESTINAL: Abdomen soft, non-tender, nondistended. Bowel Sounds normoactive x4. : Voiding without difficulty. MUSCULOSKELETAL: Extremities without clubbing, cyanosis, or edema. Spinal tenderness to palpation. NEUROLOGICAL: Awake and alert. Oriented to time, place, person. Moves all extremities. Normal speech. A/P Problem List: (1) Adjustment disorder with depressed mood ICD Code: F43.21 - Adjustment disorder with depressed mood (2) Chronic back pain ICD Code: M54.9 - Dorsalgia, unspecified; G89.29 - Other chronic pain Status: Acute (3) Hypothyroidism ICD Code: E03.9 - Hypothyroidism, unspecified Status: Acute Assessment and Plan Patient is a 56-year-old female who was transferred to the hospital from [facility] secondary to uncontrolled pain. She is now admitted to inpatient psychiatry unit for further evaluation. Consulted for medical management. Chronic back pain - congenital deformity - Patient is restarted on her medication lower dose Dilaudid 2 mg 3 times a day when necessary, Roxicodone 5 mg every 8 hours when necessary. - States improved pain. Elevated blood pressures - likely secondary to back pain, - control pain, will order hydralazine prn elevated BP. - Improved with pain control Hypothyroidism - TSH elevated. - continue levothyroxine - Verified dose with [facility] patient's dose is 150 g daily - Repeat TSH in 4-6 weeks as an outpatient. Anxiety - managed per primary team Hypokalemia - Replace potassium All medications verified with [facility] pharmacy 12/01/18 Xanax 1 mg Oxycodone 10 mg every 6 hours Hydromorphone 4 mg twice a day Levothyroxine 150 g daily DVT prop ambulatory Discussed with patient, nursing, Dr. Polo Geiger from Hospitalist standpoint. We will sign off when potassium level is ok. Recheck labs in am. Reconsult as needed. Problem Qualifiers (1) Chronic back pain: Qualified Codes: M54.5 - Low back pain; G89.29 - Other chronic pain (2) Hypothyroidism: Qualified Codes: E03.9 - Hypothyroidism, unspecified Fatoumata Jimenez Dec 01, 2016 18:26
[2016-12-01] MEDS: traZODone HCL 50 MG TAB PO SCH (20:49)
[2016-12-01] MEDS: REMOVE OLD NICOTINE PATCH T-DERMAL SCH (20:50)
[2016-12-02] MEDS: LEVOTHYROXINE SODIUM 75 MCG TAB PO SCH (05:36)
[2016-12-02] MEDS: HYDROmorphone HCL 2 MG TAB PO PRN ×2 (05:36→15:59)
[2016-12-02 06:10] VITALS: BP 153/74; PULSE 63; RESP 17; TEMP 97.9; O2SAT 94
[2016-12-02 09:45] LABS: BICARBONATE 29.6 MEQ/L (21.0-32.0); POTASSIUM 4.2 MEQ/L (3.5-5.1)
[2016-12-02] MEDS: NICOTINE 21 MG/24 HR PATCH T-DERMAL SCH (09:53)
[2016-12-02] MEDS: PARoxetine HCL 20 MG TAB PO SCH (09:54)
--- NOTE | 2016-12-02 14:23 | HHI.PYPN ---
Subjective Remarks Pt seen and discussed with staff. She has been seclusive to room and lying in bed most of day. She is withdrawn and depressed, but reports that mood is starting to improve. Cooperative with medications and denies side effects. She denies SI/HI. Chief Complaint: SI via overdose Mental Status Examination Appearance: Appropriate Consciousness: Alert Orientation: x4 Motor Activity: Normal gait Speech: Unremarkable Language: Adequate Fund of Knowledge: Adequate Attention and Concentration: Adequate Memory: Unremarkable Mood: Sad Affect: Sad Thought Process & Associations: Intact, Logical Thought Content: Appropriate Hallucination Type: None Delusion Type: None Suicidal Ideation: Yes Suicidal Plan: No Suicidal Intention: No Homicidal Ideation: No Homicidal Plan: No Homicidal Intention: No Insight: Poor Judgment: Poor Results Labs Test 12/02/16 08:12 Blood Urea Nitrogen 11 MG/DL Creatinine 0.79 MG/DL Random Glucose 117 MG/DL Calcium Level 10.2 MG/DL Sodium Level 137 MEQ/L Potassium Level 4.2 MEQ/L Chloride Level 101 MEQ/L Carbon Dioxide Level 29.6 MEQ/L Anion Gap 6 MEQ/L Estimat Glomerular Filtration Rate 75 ML/MIN Date/Time Source Procedure Growth Status 11/29/16 03:10 Urine Clean Catch Urine Culture - Final 50-100,000 CFU/ML MIXED GRAM POSITIVE... Complete Vitals/IOs Vital Signs Date Time Temp Pulse Resp B/P (MAP) Pulse Ox O2 Delivery O2 Flow Rate FiO2 12/02/16 06:10 97.9 63 17 153/74 (100) 94 Assessment & Plan Problem List: (1) Adjustment disorder with depressed mood ICD Codes: F43.21 - Adjustment disorder with depressed mood (2) Bereavement ICD Codes: Z63.4 - Disappearance and of family member Assessment & Plan Continue current tx plan. Estimated LOS: days Justification for Cont. Inpt. risk of decompensation Nika Shah MD Dec 02, 2016 14:23
[2016-12-02 18:13] VITALS: BP 92/52; PULSE 56; RESP 16; TEMP 98; O2SAT 97
[2016-12-02] MEDS: REMOVE OLD NICOTINE PATCH T-DERMAL SCH (21:00)
[2016-12-02] MEDS: traZODone HCL 50 MG TAB PO SCH (22:03)
[2016-12-03 05:30] VITALS: BP 144/80; PULSE 70; RESP 16; TEMP 97.8; O2SAT 94
[2016-12-03] MEDS: LEVOTHYROXINE SODIUM 75 MCG TAB PO SCH (06:25)
[2016-12-03] MEDS: PARoxetine HCL 20 MG TAB PO SCH (08:57)
[2016-12-03] MEDS: NICOTINE 21 MG/24 HR PATCH T-DERMAL SCH (08:57)
[2016-12-03] MEDS: HYDROmorphone HCL 2 MG TAB PO PRN ×2 (11:49→20:59)
--- NOTE | 2016-12-03 14:25 | HHI.PYPN ---
Subjective Remarks Pt seen and discussed with staff. She remains flat and has been in bed all day. She reports depression is better ,but demonstrates little in way of behavioral activation No SI/HI. Chief Complaint: SI via overdose Mental Status Examination Appearance: Appropriate Consciousness: Alert Orientation: x4 Motor Activity: Normal gait Speech: Unremarkable Language: Adequate Fund of Knowledge: Adequate Attention and Concentration: Adequate Memory: Unremarkable Mood: Sad Affect: Sad Thought Process & Associations: Intact, Logical Thought Content: Appropriate Hallucination Type: None Delusion Type: None Suicidal Ideation: Yes Suicidal Plan: No Suicidal Intention: No Homicidal Ideation: No Homicidal Plan: No Homicidal Intention: No Insight: Poor Judgment: Poor Results Labs Date/Time Source Procedure Growth Status 11/29/16 03:10 Urine Clean Catch Urine Culture - Final 50-100,000 CFU/ML MIXED GRAM POSITIVE... Complete Vitals/IOs Vital Signs Date Time Temp Pulse Resp B/P (MAP) Pulse Ox O2 Delivery O2 Flow Rate FiO2 12/03/16 05:30 97.8 70 16 144/80 (101) 94 Assessment & Plan Problem List: (1) Adjustment disorder with depressed mood ICD Codes: F43.21 - Adjustment disorder with depressed mood (2) Bereavement ICD Codes: Z63.4 - Disappearance and of family member Assessment & Plan Continue current tx plan. Encourage behavioral activation. Estimated LOS: days Justification for Cont. Inpt. risk of decompensation Nika Shah MD Dec 03, 2016 14:25
[2016-12-03 16:49] VITALS: BP 102/57; PULSE 57; RESP 18; TEMP 98.4; O2SAT 96
[2016-12-03] MEDS: traZODone HCL 50 MG TAB PO SCH (20:42)
[2016-12-03] MEDS: REMOVE OLD NICOTINE PATCH T-DERMAL SCH (20:43)
[2016-12-04] MEDS: LEVOTHYROXINE SODIUM 75 MCG TAB PO SCH (05:47)
[2016-12-04 06:33] VITALS: BP 114/67; PULSE 61; RESP 16; TEMP 97.5; O2SAT 99
[2016-12-04] MEDS: NICOTINE 21 MG/24 HR PATCH T-DERMAL SCH (08:46)
[2016-12-04] MEDS: PARoxetine HCL 20 MG TAB PO SCH (08:46)
[2016-12-04] MEDS ORDERED: PARO20TA2 PO (11:43)
[2016-12-04] MEDS ORDERED: LEVO150T7 PO (11:43)
[2016-12-04] MEDS ORDERED: TRAZ50TA12 PO (11:43)
--- NOTE | 2016-12-04 11:43 | HHI.DS ---
Psychiatry Discharge Summary Inpatient Psychiatric care?: Yes Advance Directive: No Reason Not Provided: . Mental Health AdvanceDirective: No Health Care Proxy: No Admission Admission Date Nov 29, 2016 at 06:41 Admission Diagnosis: (1) Adjustment disorder with depressed mood ICD Code: F43.21 - Adjustment disorder with depressed mood (2) Reaction, adjustment, with depressed mood, prolonged ICD Code: F43.21 - Adjustment disorder with depressed mood; G89.29 - Other chronic pain Brief History Patient is a 56 y/o woman, with two adult children domiciled with daughter recently, retired, with pas psychiatric history of depression, no prior psychiatric admissions, no prior suicide attempts, no history of substance use who was sent to the ED from [facility] under [facility] act after having stated feeling depressed and contemplating on overdosing on her medications which she was admitted to the inpatient psychiatry unit for further evaluation and treatment. Patient in the ED reported that her mother had last month and due to the Will had to vacate the home for 90 days. Patient seen on the psychiatry unit, found sitting on hospital bed stating feeling ok. Patient states that she is here in the hospital because she is grieving over the of her mother in September 2016. She states having made a statement to her friend I wonder what it would be like to be with my mother right now which her friend became concerned and called 911. She denies any suicidal ideations at this time but also did not report having contemplated overdose as stated in the [place] Act. She states that that she has been contemplating on resuming treatment and engage in therapy. She reports sleep has been getting better, decreased appetite with some weight loss but reports having re-gained some of her weight. 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 She states still feeling sad due to the loss. Currently she reports feeing ok , denies SI, HI, AVH or delusions at this time. Past psychiatric history: previous psychiatric diagnosis of post depression, no previous psychiatric admissions, no previous suicide attempts or self injurious behavior. Previous outpatient psychiatrist after the of her child which she received treatment for 12-18 months for depression with fluoxetine. Current medications: None. Denies history of sexual abuse and physical abuse. Substance use history: Tobacco (+), denies use of alcohol or other illegal substances, no previous rehab or detox programs. Past medical history: hypothyroidism, chronic back pain Allergies: lisinopril Social history: , two adult children, currently living with daughter, highest education some college. Legal history: denies Tobacco Use In Past 30 Days: 5 or More Cigarettes/Day Alcohol Use: Never Hospital Course Patient is a 56 y/o woman, with two adult children domiciled with daughter recently, retired, with pas psychiatric history of depression, no prior psychiatric admissions, no prior suicide attempts, no history of substance use who was sent to the ED from [facility] under [place] act after having stated feeling depressed and contemplating on overdosing on her medications which she was admitted to the inpatient psychiatry unit for further evaluation and treatment. Patient was admitted to the inpatient psychiatric unit for further evaluation and management. Patient was started on fluoxetine 20mg PO daily. Patient responded well to treatment, was noted to be cooperative with staff, no behavioral dyscontrol during admission and was active in groups and activities. Upon discharge patient reported feeling good denied any perceptual disturbances nor suicidal ideations or homicidal ideations. Patient agreed to continue treatment and follow up appointments for continuity of care. Patient advised to call 911 or go nearest ED in case of emergency. Patient agreed with plan. Results Blood Pressure 114 / 67 Vital Signs Date Time Temp Pulse Resp B/P (MAP) Pulse Ox O2 Delivery O2 Flow Rate FiO2 12/04/16 06:33 97.5 61 16 114/67 (83) 99 Laboratory Tests Test 12/02/16 08:12 Random Glucose 117 MG/DL (74-106) Calcium Level 10.2 MG/DL (8.5-10.1) Estimat Glomerular Filtration Rate 75 ML/MIN (>89) Laboratory Results Test 11/30/16 08:58 Cholesterol Level 154 MG/DL (120-200) HDL Cholesterol 30.7 MG/DL (40.0-60.0) Hemoglobin A1c 5.6 % (4.3-6.0) LDL Cholesterol 64 MG/DL (0-99) Triglycerides Level 298 MG/DL (42-150) Summary of Procedures None Pending results at discharge: No Medications # of Antipsychotic meds at D/C: 0 Approp Antipsych med options 1 - Minimum of three failed multiple trials of monotherapy. 2 - Documented plan to taper to monotherapy due to previous use of multiple meds OR cross-taper in progress at D/C. 3 - Documentation of augmentation of Clozapine. 4 - Justification other than those listed in allowable values 1-3, document here : Discharge Discharge Date: Dec 04, 2016 Discharge Diagnosis: (1) Adjustment disorder with depressed mood ICD Code: F43.21 - Adjustment disorder with depressed mood (2) Reaction, adjustment, with depressed mood, prolonged ICD Code: F43.21 - Adjustment disorder with depressed mood; G89.29 - Other chronic pain Status: Acute Pt Condition on Discharge: Stable Discharge Disposition: Discharge Home Discharge Instructions Diet Instructions: Heart Healthy Diet Activities you can perform: Regular-No Restrictions Scheduled Appointment: Tyler Raymundo Appointment Date: Dec 05, 2016 Appointment Time: 730 Discharge Time > 30 minutes Mental Status Examination Appearance: Appropriate Consciousness: Alert Orientation: x4 Motor Activity: Normal gait Speech: Unremarkable Language: Adequate Fund of Knowledge: Adequate Attention and Concentration: Adequate Memory: Unremarkable Mood: Appropriate, Good Affect: Euthymic Thought Process & Associations: Intact, Logical Thought Content: Appropriate Hallucination Type: None Delusion Type: None Suicidal Ideation: No Suicidal Plan: No Suicidal Intention: No Homicidal Ideation: No Homicidal Plan: No Homicidal Intention: No Insight: Adequate Judgment: Adequate Discharge/Advance Care Plan Health Problems: (1) Adjustment disorder with depressed mood (2) Bereavement Goals to promote your health * To prevent worsening of your condition and complications * To maintain your health at the optimal level Directions to meet your goals Take your medications as prescribed Follow your dietary instruction Follow activity as directed Keep your appointments as scheduled Take your immunizations and boosters as scheduled If your symptoms worsen call your PCP, if no PCP go to Urgent Care Center or Emergency Room For 24/7 questions related to your inpatient stay or results of tests pending at discharge, please contact Dr. Adonis Rueda at Smoking is Dangerous to Your Health. Avoid second hand smoking Adonis Rueda MD Dec 04, 2016 11:43
== END 2016-12-04 14:38 | disposition home or self-care (01) | DRG 881 ==
LOC: NEPD 02:09 → NEDA 06:41 → H260 09:50
PROVIDERS: ADMIT Student in an Organized Health Care Education/Training Program; ATTEND Student in an Organized Health Care Education/Training Program
DX: F43.21 Adjustment disorder with depressed mood (principal); N17.9 Acute kidney failure, unspecified; Q67.5 Congenital deformity of spine; G89.29 Other chronic pain; M54.5 Low back pain; E03.9 Hypothyroidism, unspecified; R82.90 Unspecified abnormal findings in urine; R03.0 Elevated blood-pressure reading, without diagnosis of hypertension; F41.9 Anxiety disorder, unspecified; E87.6 Hypokalemia; Z63.4 Disappearance and death of family member; Z72.0 Tobacco use
CPT/HCPCS: 80048; 80053; 80061; 80307; 81001; 83036; 84443; 85025; 87086